=== PATIENT | male | born 1970 | race Caucasian/White ===

== ENCOUNTER 2017-11-02 06:35 | Day surgery (SDC) | payer BC, OTHER ==
[2017-10-30 12:28] VITALS: BMI 25.2
[~2017-11-02 06:35] MED LIST: LACTATED RINGERS 1,000 ML IV SCH
[2017-11-02 06:58] VITALS: TEMP 97.8
[2017-11-02 07:17] LABS: Glucose,Whole Blood 139 mg/dL (75-99)
[2017-11-02] MEDS ORDERED: PROPOFOL 10 MG/ML 20 ML VIAL IV ONE (08:00)
[2017-11-02 08:29] VITALS: RESP 16
--- NOTE | 2017-11-02 08:34 | P.PCN ---
Date of Procedure: 11/02/17 Procedure(s) Performed: Procedure: Total colonoscopy. Preoperative diagnosis: Screening for neoplasia, patient has history of colon cancer. Postoperative diagnosis: 1. Prior resection in the right colon with no evidence of local recurrence. 2. Sigmoid diverticulosis with no evidence of acute diverticulitis or strictures. 3. No polyps or other pathology noted. Preparation: HalfLytely prep. Sedation: Was provided by anesthesia. Brief clinical history: The patient is a 47-year-old male who was diagnosed with colon cancer in 2011 for which he underwent right colon resection and received chemotherapy. The patient had liver resection related to cancer as well. He has done well since that time and he returns for this screening evaluation because of his history. He has no abdominal complaints, bleeding or anemia. Procedure: With the patient on his left lateral decubitus position and after informed consent and adequate sedation, the perianal area was inspected and it did not show any fissures or fistulas. There were no masses felt on digital rectal examination. The Olympus CFQ 160L video colonoscope was then inserted in the rectum in the usual fashion and advanced to the right colon. The patient had evidence of prior resection and the right colon but there was no local recurrence or any polyps or other pathology noted. In the sigmoid, there were several diverticular orifices seen scattered but there was no evidence of acute diverticulitis or strictures. I retroflexed the endoscope in the rectum before the endoscope was withdrawn. Low-grade internal hemorrhoids were noted but there was no evidence of bleeding. The patient tolerated the procedure well. Plan: The patient was reassured. He will follow up with you as planned and I recommended repeat exam in 5 years.
[2017-11-02 08:58] VITALS: BP 124/86; PULSE 74
== END 2017-11-02 09:18 | disposition home or self-care (01) ==
LOC: ORWHC2ENDO 06:35
DX: Z12.11 Encounter for screening for malignant neoplasm of colon (principal); K57.30 Diverticulosis of large intestine without perforation or abscess without bleeding; K64.8 Other hemorrhoids; E11.9 Type 2 diabetes mellitus without complications; Z88.5 Allergy status to narcotic agent; Z79.84 Long term (current) use of oral hypoglycemic drugs; Z85.038 Personal history of other malignant neoplasm of large intestine; Z90.49 Acquired absence of other specified parts of digestive tract; Z92.21 Personal history of antineoplastic chemotherapy
CPT/HCPCS: 45378; J2704

== ENCOUNTER → 2017-11-02 | Outpatient (CLI) | payer BC ==
--- NOTE | 2017-11-03 08:08 | CT ---
EXAMINATION TYPE: CT abdomen pelvis w con DATE OF EXAM: 11/02/2017 COMPARISON: November 01, 2013 HISTORY: History of colon cancer. follow up scan per patient CT DLP: 1186.9 mGycm CONTRAST: CT scan of the abdomen and pelvis is performed with Oral Contrast and with IV Contrast, patient injec benjamin with 100 mL of Isovue 300. FINDINGS: LUNG BASES-: No visible nodule. No infiltrate. LIVER/GB: No calcified gallstones. Lesion at the dome of the liver measures 1.4 cm versus 2.2 cm pr eviously and demonstrates less peripheral enhancement than on the prior study. Additional hypoattenua ting lesion anterior segment right hepatic lobe at its periphery demonstrates adjacent surgical clips and measures 2.3 cm in greatest dimension versus pneumonia hepatic lesions are identified. Scattered hepatic calcifications are noted. PANCREAS: No inflammation. No distinct mass. SPLEEN: No splenic enlargement. No lesion seen. Splenic granulomas are identified. ADRENALS: No nodule. No thickening. KIDNEYS/BLADDER: No hydronephrosis. No nephrolithiasis. No distinct renal mass. Urinary bladder g rossly unremarkable. BOWEL: Changes of right hemicolectomy. No mass lesions identified at this time. Normal bowel caliber . No inflammation. GENITAL ORGANS: No gross abnormality. LYMPH NODES: No greater than 1cm abdominal or pelvic lymph nodes are appreciated. AORTA: No significant abnormality. OSSEOUS STRUCTURES: No significant abnormality is seen. OTHER: No significant additional abnormality is seen. IMPRESSION: 1. Number of hepatic lesions is stable. Morphology and size differences as noted above. 2. Changes right-sided hemicolectomy without evidence for recurrent disease.
== END | disposition home or self-care (01) ==
LOC: RADCTMAIN 14:14
PROVIDERS: ATTEND Family Medicine
DX: Z08 Encounter for follow-up examination after completed treatment for malignant neoplasm (principal); K76.89 Other specified diseases of liver; Z90.49 Acquired absence of other specified parts of digestive tract; Z85.038 Personal history of other malignant neoplasm of large intestine; Z98.890 Other specified postprocedural states
CPT/HCPCS: 74177; Q9967

== ENCOUNTER 2019-10-21 12:56 | Observation (INO) | payer BC ==
[2019-10-21] MEDS ORDERED: ONDANSETRON 4 MG/2 ML VIAL IVP STA (13:27)
[2019-10-21] MEDS ORDERED: HYDROmorphone 0.5 MG/0.5 ML SYRINGE IVP STA (13:27)
[2019-10-21] MEDS ORDERED: SODIUM CHLORIDE 0.9% 500 ML 500 ML IV ONE (13:28)
[2019-10-21 13:59] LABS: Basophils # (A) 0.1 k/uL (0-0.2); Basophils % (A) 0 %; Eosinophils # (A) 0.1 k/uL (0-0.7); Eosinophils % (A) 0 %; HCT 44.3 % (39.0-53.0); HGB 14.3 gm/dL (13.0-17.5); Lymphocytes % (A) 7 %; MCH 28.6 pg (25.0-35.0); MCHC 32.4 g/dL (31.0-37.0); MCV 88.2 fL (80.0-100.0); Mean Platelet Volume 7.3; Monocytes # (A) 0.4 k/uL (0-1.0); Monocytes % (A) 3 %; Neutrophils # (A) 14.1 k/uL (1.3-7.7); Neutrophils % (A) 90 %; Platelet Count 269 k/uL (150-450); RBC 5.02 m/uL (4.30-5.90); RDW 12.8 % (11.5-15.5); WBC 15.7 k/uL (3.8-10.6)
[2019-10-21 14:07] LABS: ALT 25 U/L (4-49); AST 20 U/L (17-59); African American GFR (CKD) >90 (>60 ml/min/1.73 sqM); Alkaline Phosphatase 69 U/L (38-126); Amylase 53 U/L (30-110); Anion Gap 10 mmol/L; Blood Urea Nitrogen 15 mg/dL (9-20); Calcium 9.8 mg/dL (8.4-10.2); Carbon Dioxide 25 mmol/L (22-30); Chloride 101 mmol/L (98-107); Glucose 183 mg/dL (74-99); Lipase 92 U/L (23-300); Non-African American GFR(CKD) >90 (>60 ml/min/1.73 sqM); Potassium 4.7 mmol/L (3.5-5.1); Sodium 136 mmol/L (137-145); Total Bilirubin 1.2 mg/dL (0.2-1.3); Total Protein 7.7 g/dL (6.3-8.2)
[2019-10-21] MEDS ORDERED: SODIUM CHLORIDE 0.9% 1,000 ML IV ONE (14:18)
[2019-10-21 14:23] LABS: Appearance,Urine Clear (Clear); Bilirubin,Urine Negative (Negative); Blood,Urine Small (Negative); Color,Urine Yellow; Glucose,Urine (UA) 2+ (Negative); Ketones,Urine Negative (Negative); Nitrite,Urine Negative (Negative); Protein,Urine 1+ (Negative); Urobilinogen,Urine <2.0 mg/dL (<2.0)
[2019-10-21 14:24] LABS: Leukocyte Esterase,Urine Negative (Negative)
[2019-10-21 14:34] LABS: Mucus,Urine Moderate /hpf; RBC,Urine 6 /hpf (0-5); Squamous Epithelial Cell,Urine 1 /hpf (0-4); WBC,Urine 1 /hpf (0-5)
[2019-10-21] MEDS: SODIUM CHLORIDE 0.9% 1,000 ML IV SCH ×3 (14:52→23:39)
--- NOTE | 2019-10-21 15:00 | US ---
EXAMINATION TYPE: US abdomen limited DATE OF EXAM: 10/21/2019 COMPARISON: None CLINICAL HISTORY: 49-year-old male RUQ pain. Patient states having hx of liver mets with surgical rem oval. Pain. Technique: Multiple sonographic images of the right upper quadrant are obtained. FINDINGS: EXAM MEASUREMENTS: Liver Length: 18.0 cm Gallbladder Wall: 0.1 cm CBD: 0.9 cm Right Kidney: 12.7 x 6.4 x 5.4 cm Pancreas: Tail obscured by overlying bowel gas. The main pancreatic duct is prominent but within nor mal limits at 2.4 mm. Liver: Echogenic. There is a lobulated hypoechoic lesion centrally in the right liver lobe measuring 3.1 x 2.7 x 2.5 cm. Additional vascular, echogenic, and shadowing lesion with suggestion of some int ernal calcifications anterior right liver lobe measuring 1.6 x 2.0 x 1.8 cm Gallbladder: Borderline hydropic. No wall thickening or surrounding fluid. Possible 9 mm echogenic f ocus at the gallbladder neck region. Evidence for sonographic Davies's sign: neg CBD: dilated Right Kidney: No hydronephrosis. IMPRESSION: 1. Suspect underlying hepatic steatosis. There are 2 suspicious lesions, one within the central right liver (3.1 cm) and one within the anterior right liver (2.0 cm). Given patient's history, hepatic me tastases not excluded. Consider MRI to further evaluate. 2. Bile duct is dilated at 9 mm. Correlate with alkaline phosphatase levels for possible early biliar y obstruction. 3. Borderline hydropic gallbladder may relate to fasting state. Sonographic Davies sign is reported a bsent. Given a possible 9 mm calculus in the gallbladder neck region, HIDA scan can be considered if there is development of right upper quadrant pain or concern for early acute cholecystitis.
[2019-10-21] MEDS ORDERED: NALOXONE 0.4 MG/ML 1 ML VIAL IV PRN (15:19)
--- NOTE | 2019-10-21 15:21 | ED ---
Abdominal Pain HPI - General Chief Complaint: Abdominal Pain Stated Complaint: Abd Pain Time Seen by Provider: 10/21/19 13:19 Source: patient Mode of arrival: ambulatory Limitations: no limitations - History of Present Illness Initial Comments: 49-year-old male who denies significant past medical history presenting today for chief complaint of upper quadrant pain that radiates towards his shoulder blades. Patient states that since this morning he has had right upper quadrant pain that radiated towards his shoulder he endorses nausea denies vomiting denies diarrhea or loose stools. Patient denies any chest pain pressure or shortness of breath denies a paresthesias of the upper extremities or jaw pain. Patient denies a presyncope. He denies any known fevers. Patient denies chills. Remaining review of systems negative and the pain persisted he was concerned presents to the ER for further evaluation. Upon arrival patient appears uncomfortable. Patient states he did have an outpatient EKG - Related Data Home Medications Medication Instructions Recorded Confirmed Aspirin [Adult Low Dose Aspirin EC] 162 mg PO ONCE 10/21/19 10/21/19 lisinopriL [Zestril] 5 mg PO DAILY 10/21/19 10/21/19 metFORMIN HCL [metFORMIN HCL ER] 500 mg PO BID 10/21/19 10/21/19 Allergies Allergy/AdvReac Type Severity Reaction Status Date / Time acetaminophen [From Vicodin] Allergy Rash/Hives Verified 10/21/19 15:24 hydrocodone [From Vicodin] Allergy Rash/Hives Verified 10/21/19 15:24 Review of Systems ROS Statement: Those systems with pertinent positive or pertinent negative responses have been documented in the HPI. ROS Other: All systems not noted in ROS Statement are negative. Past Medical History Past Medical History: Cancer Additional Past Medical History / Comment(s): colon cancer History of Any Multi-Drug Resistant Organisms: None Reported Additional Past Surgical History / Comment(s): cancer removal Past Psychological History: No Psychological Hx Reported Smoking Status: Current some day smoker Past Alcohol Use History: None Reported Past Drug Use History: None Reported General Exam - General Exam Comments Initial Comments: General: The patient is awake and alert, in no distress Eye: Pupils are equal, round and reactive to light, extra-ocular movements are intact. No nystagmus. There is normal conjunctiva bilaterally. No signs of icterus. Ears, nose, mouth and throat: There are moist mucous membranes and no oral lesions. Neck: The neck is supple, there is no tenderness or JVD. Cardiovascular: There is a regular rate and rhythm. No murmur, rub or gallop is appreciated. Respiratory: Lungs are clear to auscultation, respirations are non-labored, breath sounds are equal. No wheezes, stridor, rales, or rhonchi. Gastrointestinal: Soft, non-distended, RUQ tendenress to palpation, + murphys sign, abdomen without masses or organomegaly noted. There is no rebound or guarding present. Musculoskeletal: Normal ROM, no tenderness. Strength 5/5. Sensation intact. Pulses equal bilaterally 2+. Neurological: A&O x 3. CN II-XII intact grossly, There are no obvious motor or sensory deficits. Coordination appears grossly intact. Speech is normal. Skin: Skin is warm and dry and no rashes or lesions are noted. No LE swelling. Psychiatric: Cooperative, appropriate mood & affect, normal judgment. Limitations: no limitations Course Vital Signs 10/21/19 13:05 Temperature 97.6 F Pulse Rate 83 Respiratory 18 Rate Blood Pressure 134/80 O2 Sat by Pulse 98 Oximetry Procedures - [employer] Protocol (Time Out) Nurse: Zuly Singletary Medical Decision Making - Medical Decision Making General male presented for upper quadrant plain positive Davies sign. Leukocytosis. Patient has no enzyme elevation however there is a 9 mm gallbladder neck stone. I'm concern for developing acute cholecystitis. Patient was placed on Zosyn. IV fluids. Dilaudid for pain management which he tolerated well. States it did help control the pain. She case discussed at length my attending provider Dr. Ghosh who is agreeable to care plan admission. Dr. Winters accepted the admission, he states no GI consult needed at this time, wants medicine consulted and NPO after midnight. Patient agreeable to care plan. He does not appear septic and blood cultures are pending. - Lab Data Result diagrams: 10/21/19 13:50 10/21/19 13:50 Lab Results 10/21/19 10/21/19 10/21/19 Range/Units 13:50 13:50 13:50 WBC 15.7 H (3.8-10.6) k/uL RBC 5.02 (4.30-5.90) m/uL Hgb 14.3 (13.0-17.5) gm/dL Hct 44.3 (39.0-53.0) % MCV 88.2 (80.0-100.0) fL MCH 28.6 (25.0-35.0) pg MCHC 32.4 (31.0-37.0) g/dL RDW 12.8 (11.5-15.5) % Plt Count 269 (150-450) k/uL Neutrophils % 90 % Lymphocytes % 7 % Monocytes % 3 % Eosinophils % 0 % Basophils % 0 % Neutrophils # 14.1 H (1.3-7.7) k/uL Lymphocytes # 1.0 (1.0-4.8) k/uL Monocytes # 0.4 (0-1.0) k/uL Eosinophils # 0.1 (0-0.7) k/uL Basophils # 0.1 (0-0.2) k/uL Sodium 136 L (137-145) mmol/L Potassium 4.7 (3.5-5.1) mmol/L Chloride 101 (98-107) mmol/L Carbon Dioxide 25 (22-30) mmol/L Anion Gap 10 mmol/L BUN 15 (9-20) mg/dL Creatinine 0.65 L (0.66-1.25) mg/dL Est GFR (CKD-EPI)AfAm >90 (>60 ml/min/1.73 sqM) Est GFR (CKD-EPI)NonAf >90 (>60 ml/min/1.73 sqM) Glucose 183 H (74-99) mg/dL Lactic Ac Sepsis Rflx Plasma Lactic Acid Rancho 2.5 H* (0.7-2.0) mmol/L Calcium 9.8 (8.4-10.2) mg/dL Total Bilirubin 1.2 (0.2-1.3) mg/dL AST 20 (17-59) U/L ALT 25 (4-49) U/L Alkaline Phosphatase 69 (38-126) U/L Troponin I (0.000-0.034) ng/mL Total Protein 7.7 (6.3-8.2) g/dL Albumin 5.0 (3.5-5.0) g/dL Amylase 53 (30-110) U/L Lipase 92 (23-300) U/L Urine Color Urine Appearance (Clear) Urine pH (5.0-8.0) Ur Specific [place] (1.001-1.035) Urine Protein (Negative) Urine Glucose (UA) (Negative) Urine Ketones (Negative) Urine Blood (Negative) Urine Nitrite (Negative) Urine Bilirubin (Negative) Urine Urobilinogen (<2.0) mg/dL Ur Leukocyte Esterase (Negative) Urine RBC (0-5) /hpf Urine WBC (0-5) /hpf Ur Squamous Epith Cells (0-4) /hpf Urine Mucus (None) /hpf 10/21/19 10/21/19 10/21/19 Range/Units 13:50 13:55 14:17 WBC (3.8-10.6) k/uL RBC (4.30-5.90) m/uL Hgb (13.0-17.5) gm/dL Hct (39.0-53.0) % MCV (80.0-100.0) fL MCH (25.0-35.0) pg MCHC (31.0-37.0) g/dL RDW (11.5-15.5) % Plt Count (150-450) k/uL Neutrophils % % Lymphocytes % % Monocytes % % Eosinophils % % Basophils % % Neutrophils # (1.3-7.7) k/uL Lymphocytes # (1.0-4.8) k/uL Monocytes # (0-1.0) k/uL Eosinophils # (0-0.7) k/uL Basophils # (0-0.2) k/uL Sodium (137-145) mmol/L Potassium (3.5-5.1) mmol/L Chloride (98-107) mmol/L Carbon Dioxide (22-30) mmol/L Anion Gap mmol/L BUN (9-20) mg/dL Creatinine (0.66-1.25) mg/dL Est GFR (CKD-EPI)AfAm (>60 ml/min/1.73 sqM) Est GFR (CKD-EPI)NonAf (>60 ml/min/1.73 sqM) Glucose (74-99) mg/dL Lactic Ac Sepsis Rflx Y Plasma Lactic Acid [place] (0.7-2.0) mmol/L Calcium (8.4-10.2) mg/dL Total Bilirubin (0.2-1.3) mg/dL AST (17-59) U/L ALT (4-49) U/L Alkaline Phosphatase (38-126) U/L Troponin I <0.012 (0.000-0.034) ng/mL Total Protein (6.3-8.2) g/dL Albumin (3.5-5.0) g/dL Amylase (30-110) U/L Lipase (23-300) U/L Urine Color Yellow Urine Appearance Clear (Clear) Urine pH 6.0 (5.0-8.0) Ur Specific [place] 1.030 (1.001-1.035) Urine Protein 1+ H (Negative) Urine Glucose (UA) 2+ H (Negative) Urine Ketones Negative (Negative) Urine Blood Small (Negative) Urine Nitrite Negative (Negative) Urine Bilirubin Negative (Negative) Urine Urobilinogen <2.0 (<2.0) mg/dL Ur Leukocyte Esterase Negative (Negative) Urine RBC 6 H (0-5) /hpf Urine WBC 1 (0-5) /hpf Ur Squamous Epith Cells 1 (0-4) /hpf Urine Mucus Moderate H (None) /hpf Disposition Clinical Impression: Calculus of GB/BD w/o cystitis, Common bile duct dilatation, RUQ pain, Lactic acidosis, Hepatic steatosis, Liver lesion Disposition: ADMITTED IP TO THIS [facility] Condition: Stable Is patient prescribed a controlled substance at d/c from ED?: No Referrals: Emily Gallo DO [Primary Care Provider] - 1-2 days Time of Disposition: 15:21 Decision to Admit Reason: Admit from EC Decision Date: 10/21/19 Decision Time: 15:21
[2019-10-21] MEDS ORDERED: PIPERACILLIN-TAZOBACTAM 3.375 GM in SODIUM CHLORIDE 0.9% 100 ML IVPB SCH (16:00)
[2019-10-21] MEDS: HYDROmorphone 0.5 MG/0.5 ML SYRINGE IVP PRN ×3 (17:14→23:43)
[2019-10-21 20:26] LABS: Glucose,Whole Blood 160 mg/dL (75-99)
--- NOTE | 2019-10-21 22:01 | P.CONS ---
History of Present Illness - History of Present Illness This is a pleasant 49 years old male with past medical history of colon cancer status post colon resection and short period of chemotherapy. He is a patient of Dr. Kurtz. Presents with right upper quadrant abdominal pain of one-day duration associated with right shoulder pain. His abdominal pain is severe and sharp associated with nausea and only little vomiting. He had regular bowel movement today. Also patient denies fever. Although he feels. No other complaints like no chest pain or dyspnea, no headache or weakness He smokes about half pack per day but he denies alcohol or illicit drugs. Vital signs stable and patient is afebrile. Leukocytosis of 15.7 K, Rest of the CBC, BMP and Liver Enzymes Were Unremarkable. Troponin Is Negative Less Than 0.012, High Lactic Acid Came Back to Normal at 1.9. UA Is No Suspicious of Infection. EKG Showing Normal Sinus Rhythm at 70 Bpm If Her Ultrasound Showing Suspected Underlying 2 Lesions Suspicious for Metastatic Liver Disease One of Them Is 3.1 Cm at the Central Right Liver and the Other One in the Anterior Right Liver 2.0 Cm. Bile duct is dilated 9 mm, borderline hydropic gallbladder medullary to fasting state. Gallbladder neck calculus of 9 mm Review of Systems CONSTITUTIONAL: No fever, no malaise, no fatigue. HEENT: No recent visual problems or hearing problems. Denied any sore throat. CARDIOVASCULAR: No orthopnea, PND, no palpitations, no syncope. PULMONARY: No shortness of breath, no cough, no hemoptysis. GASTROINTESTINAL: No diarrhea, Normoactive bowel sounds. NEUROLOGICAL: No headaches, no weakness, no numbness. HEMATOLOGICAL: Denies any bleeding or petechiae. GENITOURINARY: Denies any burning micturition, frequency, or urgency. MUSCULOSKELETAL/RHEUMATOLOGICAL: Denies any joint pain, swelling, or any muscle pain. ENDOCRINE: Denies any polyuria or polydipsia. Past Medical History Past Medical History: Cancer Additional Past Medical History / Comment(s): colon cancer History of Any Multi-Drug Resistant Organisms: None Reported Additional Past Surgical History / Comment(s): cancer removal Past Anesthesia/Blood Transfusion Reactions: No Reported Reaction Past Psychological History: No Psychological Hx Reported Smoking Status: Current some day smoker Past Alcohol Use History: None Reported Past Drug Use History: None Reported - Past Family History Mother Family Medical History: Coronary Artery Disease (CAD), CVA/TIA, Diabetes Mellitus Medications and Allergies Home Medications Medication Instructions Recorded Confirmed Type Aspirin [Adult Low Dose Aspirin EC] 162 mg PO ONCE 10/21/19 10/21/19 History lisinopriL [Zestril] 5 mg PO DAILY 10/21/19 10/21/19 History metFORMIN HCL [metFORMIN HCL ER] 500 mg PO BID 10/21/19 10/21/19 History Allergies Allergy/AdvReac Type Severity Reaction Status Date / Time acetaminophen [From Vicodin] Allergy Rash/Hives Verified 10/21/19 15:24 hydrocodone [From Vicodin] Allergy Rash/Hives Verified 10/21/19 15:24 Physical Exam Vitals: Vital Signs Temp Pulse Pulse Resp BP BP Pulse Ox 10/21/19 20:30 98.4 F 71 18 147/80 99 10/21/19 17:29 98.4 F 75 16 156/77 100 10/21/19 13:05 97.6 F 83 18 134/80 98 Intake and Output 10/21/19 10/21/19 10/21/19 06:59 14:59 22:59 Other: Voiding Method Toilet Weight 101.605 kg 101.605 kg GENERAL: The patient is alert and oriented x3, not in any acute distress. Well developed, well nourished. HEENT: Pupils are round and equally reacting to light. EOMI. No scleral icterus. No conjunctival pallor. Normocephalic, atraumatic. No pharyngeal erythema. No thyromegaly. CARDIOVASCULAR: S1 and S2 present. No murmurs, rubs, or gallops. PULMONARY: Chest is clear to auscultation, no wheezing or crackles. -ABDOMEN: Soft, right upper quadrant tenderness, nondistended, normoactive bowel sounds. No palpable organomegaly. MUSCULOSKELETAL: No joint swelling or deformity. EXTREMITIES: No cyanosis, clubbing, or pedal edema. NEUROLOGICAL: Gross neurological examination did not reveal any focal deficits. SKIN: No rashes. No petechiae Results CBC & Chem 7: 10/21/19 13:50 10/21/19 13:50 Labs: Abnormal Lab Results - Last 24 Hours (Table) 10/21/19 10/21/19 10/21/19 Range/Units 13:50 13:50 13:50 WBC 15.7 H (3.8-10.6) k/uL Neutrophils # 14.1 H (1.3-7.7) k/uL Sodium 136 L (137-145) mmol/L Creatinine 0.65 L (0.66-1.25) mg/dL Glucose 183 H (74-99) mg/dL POC Glucose (mg/dL) (75-99) mg/dL Plasma Lactic Acid [place] 2.5 H* (0.7-2.0) mmol/L Urine Protein (Negative) Urine Glucose (UA) (Negative) Urine RBC (0-5) /hpf Urine Mucus (None) /hpf 10/21/19 10/21/19 Range/Units 13:55 20:24 WBC (3.8-10.6) k/uL Neutrophils # (1.3-7.7) k/uL Sodium (137-145) mmol/L Creatinine (0.66-1.25) mg/dL Glucose (74-99) mg/dL POC Glucose (mg/dL) 160 H (75-99) mg/dL Plasma Lactic Acid [place] (0.7-2.0) mmol/L Urine Protein 1+ H (Negative) Urine Glucose (UA) 2+ H (Negative) Urine RBC 6 H (0-5) /hpf Urine Mucus Moderate H (None) /hpf Assessment and Plan Assessment: 2 right liver lesion 3.1 and 2.0 cm suspicious for hepatic metastasis Dilated common bile duct of 9 mm Hydropic gallbladder with gallstones and the gallbladder neck, suspicious for acute cholecystitis History of colon cancer status post bowel resection and short period of chemotherapy Plan: This is a pleasant 49 years old male who presents with possible cholecystitis with gallstone in the gallbladder neck as well as 2 lesions suspicious for hepatic metastasis. Surgery team will evaluate the patient in the meantime continue with pain management, normal saline and IV Zosyn. Hold aspirin for pos sible procedure Labs and medication were reviewed.. Continue same treatment. Continue with symptomatic treatment. Resume home medication. Monitor lytes and vitals. DVT and GI prophylaxis. Further recommendations of the clinical course of the patient DVT prophylaxis: Subcutaneous heparin GI Prophylaxis: Pepcid Prognosis is guardeds thank you for consulting us
[2019-10-22] MEDS: HYDROmorphone 0.5 MG/0.5 ML SYRINGE IVP PRN ×2 (03:08→07:37)
[2019-10-22] MEDS: PIPERACILLIN-TAZOBACTAM 3.375 GM in SODIUM CHLORIDE 0.9% 100 ML IVPB SCH ×3 (03:08→20:32)
[2019-10-22] MEDS: SODIUM CHLORIDE 0.9% 1,000 ML IV SCH ×3 (03:13→22:33)
[2019-10-22 05:49] LABS: Basophils # (A) 0.1 k/uL (0-0.2); Basophils % (A) 0 %; Eosinophils # (A) 0.2 k/uL (0-0.7); Eosinophils % (A) 2 %; HGB 14.1 gm/dL (13.0-17.5); Lymphocytes # (A) 3.2 k/uL (1.0-4.8); Lymphocytes % (A) 24 %; MCH 28.7 pg (25.0-35.0); MCHC 32.1 g/dL (31.0-37.0); MCV 89.5 fL (80.0-100.0); Mean Platelet Volume 7.3; Monocytes # (A) 0.7 k/uL (0-1.0); Monocytes % (A) 5 %; Neutrophils # (A) 9.1 k/uL (1.3-7.7); Neutrophils % (A) 68 %; Platelet Count 240 k/uL (150-450); RBC 4.91 m/uL (4.30-5.90); RDW 12.9 % (11.5-15.5); WBC 13.5 k/uL (3.8-10.6)
[2019-10-22 06:00] LABS: ALT 21 U/L (4-49); AST 18 U/L (17-59); African American GFR (CKD) >90 (>60 ml/min/1.73 sqM); Albumin 4.1 g/dL (3.5-5.0); Alkaline Phosphatase 63 U/L (38-126); Anion Gap 7 mmol/L; Blood Urea Nitrogen 11 mg/dL (9-20); Calcium 8.9 mg/dL (8.4-10.2); Carbon Dioxide 26 mmol/L (22-30); Chloride 103 mmol/L (98-107); Glucose 115 mg/dL (74-99); Non-African American GFR(CKD) >90 (>60 ml/min/1.73 sqM); Potassium 3.9 mmol/L (3.5-5.1); Sodium 136 mmol/L (137-145); Total Bilirubin 2.1 mg/dL (0.2-1.3); Total Protein 6.7 g/dL (6.3-8.2)
[2019-10-22 06:34] LABS: Glucose,Whole Blood 141 mg/dL (75-99)
[2019-10-22] MEDS: FAMOTIDINE 20 MG/2 ML VIAL IV SCH ×2 (07:37→20:31)
[2019-10-22] MEDS: lisinopriL 5 MG TAB PO SCH (07:37)
[2019-10-22] MEDS: HEPARIN SODIUM,PORCINE 5,000 UNIT/ML 1 ML VIAL SQ SCH ×2 (07:43→20:30)
[2019-10-22] MEDS ORDERED: METFORMIN HCL 500 MG PO SCH (09:00)
[2019-10-22 11:40] LABS: Glucose,Whole Blood 138 mg/dL (75-99)
--- NOTE | 2019-10-22 12:10 | P.GSHP ---
History of Present Illness H&P Date: 10/22/19 CHIEF COMPLAINT: Right upper quadrant abdominal pain HISTORY OF PRESENT ILLNESS: This is a 49-year-old male with history of colon cancer status post resection and short period of chemotherapy. And he has a history of nicotine dependence patient presented to the emergency room with complaints of right upper quadrant abdominal pain that radiated up into the right shoulder. He reports that the pain was sharp and associated with nausea and some vomiting. He is having regular bowel movements. He denies any fever or chills. Abdominal ultrasound showed dilation of the common bile duct and borderline hydropic gallbladder. And possible calculus in the gallbladder. Patient has evidence of acute cholecystitis and has been scheduled for laparoscopic cholecystectomy. PAST MEDICAL HISTORY: See list. PAST SURGICAL HISTORY: See list. MEDICATIONS: See list. ALLERGIES: See list. SOCIAL HISTORY: No illicit drug use. REVIEW OF SYSTEMS: CONSTITUTIONAL: Denies fever or chills. HEENT: Denies blurred vision, vision changes, or eye pain. Denies hemoptysis CARDIOVASCULAR: Denies chest pain or pressure. RESPIRATORY: No shortness of breath. GASTROINTESTINAL: See HPI for pertinent findings HEMATOLOGIC: Denies bleeding disorders. GENITOURINARY: Denies any blood in urine or increased urinary frequency. SKIN: Denies pruitis. Denies rash. PHYSICAL EXAM: VITAL SIGNS: Reviewed GENERAL: Well-developed in no acute distress. HEENT: No sclera icterus. Extraocular movements grossly intact. Moist buccal mucosa. Head is atraumatic, normocephalic. No nasal drainage. ABDOMEN: Soft. Right upper quadrant tenderness with palpation. Nondistended. NEUROLOGIC: Alert and oriented. Cranial nerves II through XII grossly intact. LABORATORY DATA: WBC 13.5 total bilirubin 2.1 lactic 2.5 LFTs normal lipase normal IMAGING: Abdominal ultrasound suspect underlying hepatic steatosis. 2 suspicious lesions on within the central right liver one within the anterior right liver. Given patient's history hepatic metastasis not excluded. Bile duct is dilated at 9 mm. Borderline hydropic gallbladder may be related to fasting state. Possible 9 mm calculus in the gallbladder neck region ASSESSMENT: 1. Acute cholecystitis: Right upper quadrant abdominal pain and abdominal ultrasound with dilated common bile and a 9 mm Calculus in the gallbladder neck region 2. History of colon cancer with liver lesions noted on abdominal ultrasound PLAN: -Patient is scheduled for laparoscopic cholecystectomy today with Dr. Winters -Continue IV antibiotics -continue IV fluids -Continue IV Dilaudid and continue -GI prophylaxis Pepcid and DVT prophylaxis subcu heparin -Medicine consulted for medical management -Oncology consulted for colon cancer with possible liver metastases Physician Correction Officer Supervisor note has been reviewed by physician. Signing provider agrees with the documented findings, assessment, and plan of care. Past Medical History Past Medical History: Cancer Additional Past Medical History / Comment(s): colon cancer History of Any Multi-Drug Resistant Organisms: None Reported Additional Past Surgical History / Comment(s): cancer removal Past Anesthesia/Blood Transfusion Reactions: No Reported Reaction Past Psychological History: No Psychological Hx Reported Smoking Status: Current some day smoker Past Alcohol Use History: None Reported Past Drug Use History: None Reported - Past Family History Mother Family Medical History: Coronary Artery Disease (CAD), CVA/TIA, Diabetes Mellitus Medications and Allergies Home Medications Medication Instructions Recorded Confirmed Type Aspirin [Adult Low Dose Aspirin EC] 162 mg PO ONCE 10/21/19 10/21/19 History lisinopriL [Zestril] 5 mg PO DAILY 10/21/19 10/21/19 History metFORMIN HCL [metFORMIN HCL ER] 500 mg PO BID 10/21/19 10/21/19 History Allergies Allergy/AdvReac Type Severity Reaction Status Date / Time acetaminophen [From Vicodin] Allergy Rash/Hives Verified 10/21/19 15:24 hydrocodone [From Vicodin] Allergy Rash/Hives Verified 10/21/19 15:24 Surgical - Exam Vital Signs Temp Pulse Resp BP Pulse Ox 97.6 F 83 18 134/80 98 10/21/19 13:05 10/21/19 13:05 10/21/19 13:05 10/21/19 13:05 10/21/19 13:05 Results - Labs 10/22/19 05:24 10/22/19 05:24 Abnormal Lab Results - Last 24 Hours (Table) 10/21/19 10/21/19 10/21/19 Range/Units 13:50 13:50 13:50 WBC 15.7 H (3.8-10.6) k/uL Neutrophils # 14.1 H (1.3-7.7) k/uL Sodium 136 L (137-145) mmol/L Creatinine 0.65 L (0.66-1.25) mg/dL Glucose 183 H (74-99) mg/dL POC Glucose (mg/dL) (75-99) mg/dL Plasma Lactic Acid Rancho 2.5 H* (0.7-2.0) mmol/L Total Bilirubin (0.2-1.3) mg/dL Urine Protein (Negative) Urine Glucose (UA) (Negative) Urine RBC (0-5) /hpf Urine Mucus (None) /hpf 10/21/19 10/21/19 10/22/19 Range/Units 13:55 20:24 05:24 WBC 13.5 H (3.8-10.6) k/uL Neutrophils # 9.1 H (1.3-7.7) k/uL Sodium (137-145) mmol/L Creatinine (0.66-1.25) mg/dL Glucose (74-99) mg/dL POC Glucose (mg/dL) 160 H (75-99) mg/dL Plasma Lactic Acid Rancho (0.7-2.0) mmol/L Total Bilirubin (0.2-1.3) mg/dL Urine Protein 1+ H (Negative) Urine Glucose (UA) 2+ H (Negative) Urine RBC 6 H (0-5) /hpf Urine Mucus Moderate H (None) /hpf 10/22/19 10/22/19 10/22/19 Range/Units 05:24 06:33 11:38 WBC (3.8-10.6) k/uL Neutrophils # (1.3-7.7) k/uL Sodium 136 L (137-145) mmol/L Creatinine 0.63 L (0.66-1.25) mg/dL Glucose 115 H (74-99) mg/dL POC Glucose (mg/dL) 141 H 138 H (75-99) mg/dL Plasma Lactic Acid Rancho (0.7-2.0) mmol/L Total Bilirubin 2.1 H (0.2-1.3) mg/dL Urine Protein (Negative) Urine Glucose (UA) (Negative) Urine RBC (0-5) /hpf Urine Mucus (None) /hpf Diabetes panel 10/21/19 10/22/19 Range/Units 13:50 05:24 Sodium 136 L 136 L (137-145) mmol/L Potassium 4.7 3.9 (3.5-5.1) mmol/L Chloride 101 103 (98-107) mmol/L Carbon Dioxide 25 26 (22-30) mmol/L BUN 15 11 (9-20) mg/dL Creatinine 0.65 L 0.63 L (0.66-1.25) mg/dL Glucose 183 H 115 H (74-99) mg/dL Calcium 9.8 8.9 (8.4-10.2) mg/dL AST 20 18 (17-59) U/L ALT 25 21 (4-49) U/L Alkaline Phosphatase 69 63 (38-126) U/L Total Protein 7.7 6.7 (6.3-8.2) g/dL Albumin 5.0 4.1 (3.5-5.0) g/dL Calcium panel 10/21/19 10/22/19 Range/Units 13:50 05:24 Calcium 9.8 8.9 (8.4-10.2) mg/dL Albumin 5.0 4.1 (3.5-5.0) g/dL Pituitary panel 10/21/19 10/22/19 Range/Units 13:50 05:24 Sodium 136 L 136 L (137-145) mmol/L Potassium 4.7 3.9 (3.5-5.1) mmol/L Chloride 101 103 (98-107) mmol/L Carbon Dioxide 25 26 (22-30) mmol/L BUN 15 11 (9-20) mg/dL Creatinine 0.65 L 0.63 L (0.66-1.25) mg/dL Glucose 183 H 115 H (74-99) mg/dL Calcium 9.8 8.9 (8.4-10.2) mg/dL Adrenal panel 10/21/19 10/22/19 Range/Units 13:50 05:24 Sodium 136 L 136 L (137-145) mmol/L Potassium 4.7 3.9 (3.5-5.1) mmol/L Chloride 101 103 (98-107) mmol/L Carbon Dioxide 25 26 (22-30) mmol/L BUN 15 11 (9-20) mg/dL Creatinine 0.65 L 0.63 L (0.66-1.25) mg/dL Glucose 183 H 115 H (74-99) mg/dL Calcium 9.8 8.9 (8.4-10.2) mg/dL Total Bilirubin 1.2 2.1 H (0.2-1.3) mg/dL AST 20 18 (17-59) U/L ALT 25 21 (4-49) U/L Alkaline Phosphatase 69 63 (38-126) U/L Total Protein 7.7 6.7 (6.3-8.2) g/dL Albumin 5.0 4.1 (3.5-5.0) g/dL
--- NOTE | 2019-10-22 12:17 | P.PN ---
Subjective This is a pleasant 49 years old male with past medical history of colon cancer status post colon resection and short period of chemotherapy. He is a patient of Dr. Kurtz. Presents with right upper quadrant abdominal pain of one-day duration associated with right shoulder pain. His abdominal pain is severe and sharp associated with nausea and only little vomiting. He had regular bowel movement today. Also patient denies fever. Although he feels. No other complaints like no chest pain or dyspnea, no headache or weakness He smokes about half pack per day but he denies alcohol or illicit drugs. Vital signs stable and patient is afebrile. Leukocytosis of 15.7 K, Rest of the CBC, BMP and Liver Enzymes Were Unremarkable. Troponin Is Negative Less Than 0.012, High Lactic Acid Came Back to Normal at 1.9. UA Is No Suspicious of Infection. EKG Showing Normal Sinus Rhythm at 70 Bpm If Her Ultrasound Showing Suspected Underlying 2 Lesions Suspicious for Metastatic Liver Disease One of Them Is 3.1 Cm at the Central Right Liver and the Other One in the Anterior Right Liver 2.0 Cm. Bile duct is dilated 9 mm, borderline hydropic gallbladder medullary to fasting state. Gallbladder neck calculus of 9 mm 10/22/2019 Patient sitting in bed, not in distress, his right upper quadrant abdominal pain is controlled but only because he got Dilaudid and irrigated about 4/10 in severity, pain is getting worse with movement today. No vomiting and no problem with his bowel movements. WBC is trending down and patient remains on Zosyn and normal saline at 1 30 mL/h when going tomorrow with 100 mL per hour. Patient is going for laparoscopic cholecystectomy today Oncology team were consulted for possible liver metastases Review of Systems CONSTITUTIONAL: No fever, no malaise, no fatigue. HEENT: No recent visual problems or hearing problems. Denied any sore throat. CARDIOVASCULAR: No orthopnea, PND, no palpitations, no syncope. PULMONARY: No shortness of breath, no cough, no hemoptysis. GASTROINTESTINAL: No diarrhea, Normoactive bowel sounds. NEUROLOGICAL: No headaches, no weakness, no numbness. HEMATOLOGICAL: Denies any bleeding or petechiae. GENITOURINARY: Denies any burning micturition, frequency, or urgency. MUSCULOSKELETAL/RHEUMATOLOGICAL: Denies any joint pain, swelling, or any muscle pain. ENDOCRINE: Denies any polyuria or polydipsia. Active Medications Generic Name Dose Route Start Last Admin Trade Name Freq PRN Reason Stop Dose Admin Famotidine 20 mg 10/22/19 09:00 10/22/19 07:37 Pepcid IV 20 mg Q12HR [facility]ELA Administration Heparin Sodium (Porcine) 5,000 unit 10/22/19 09:00 10/22/19 07:43 Heparin SQ 5,000 unit Q12HR ARIELA Administration Hydromorphone HCl 0.5 mg 10/21/19 16:04 10/22/19 07:37 Dilaudid IVP 0.5 mg Q3H PRN Administration Severe Pain Sodium Chloride 1,000 mls @ 130 mls/hr 10/21/19 14:30 10/22/19 03:13 Saline 0.9% IV Not Given .Q7H42M ARIELA Piperacillin Sod/Tazobactam 100 mls @ 25 mls/hr 10/22/19 04:00 10/22/19 11:28 Sod 3.375 gm/ Sodium Chloride IVPB 25 mls/hr Q8H [facility]ELA Administration Lisinopril 5 mg 10/22/19 09:00 10/22/19 07:37 Zestril PO 5 mg DAILY ARIELA Administration Naloxone HCl 0.2 mg 10/21/19 15:19 Narcan IV Q2M PRN Opioid Reversal Objective - Vital Signs Vital signs: Vital Signs Temp 98.6 F 10/22/19 08:37 Pulse 76 10/22/19 08:37 Resp 12 10/22/19 08:37 BP 119/70 10/22/19 08:37 Pulse Ox 97 10/22/19 07:55 Intake & Output 10/21/19 10/22/19 10/22/19 18:59 06:59 18:59 Intake Total 260 Balance 260 Weight 101.605 kg Intake: Intake, IV Titration 260 Amount Sodium Chloride 0.9% 1, 260 000 ml @ 130 mls/hr IV . Q7H42M [facility] Rx#:[id number] Other: Voiding Method Toilet # Voids 2 - Labs CBC & Chem 7: 10/22/19 05:24 10/22/19 05:24 Labs: Abnormal Lab Results - Last 24 Hours (Table) 10/21/19 10/21/19 10/21/19 Range/Units 13:50 13:50 13:50 WBC 15.7 H (3.8-10.6) k/uL Neutrophils # 14.1 H (1.3-7.7) k/uL Sodium 136 L (137-145) mmol/L Creatinine 0.65 L (0.66-1.25) mg/dL Glucose 183 H (74-99) mg/dL POC Glucose (mg/dL) (75-99) mg/dL Plasma Lactic Acid Rancho 2.5 H* (0.7-2.0) mmol/L Total Bilirubin (0.2-1.3) mg/dL Urine Protein (Negative) Urine Glucose (UA) (Negative) Urine RBC (0-5) /hpf Urine Mucus (None) /hpf 10/21/19 10/21/19 10/22/19 Range/Units 13:55 20:24 05:24 WBC 13.5 H (3.8-10.6) k/uL Neutrophils # 9.1 H (1.3-7.7) k/uL Sodium (137-145) mmol/L Creatinine (0.66-1.25) mg/dL Glucose (74-99) mg/dL POC Glucose (mg/dL) 160 H (75-99) mg/dL Plasma Lactic Acid Rancho (0.7-2.0) mmol/L Total Bilirubin (0.2-1.3) mg/dL Urine Protein 1+ H (Negative) Urine Glucose (UA) 2+ H (Negative) Urine RBC 6 H (0-5) /hpf Urine Mucus Moderate H (None) /hpf 10/22/19 10/22/19 10/22/19 Range/Units 05:24 06:33 11:38 WBC (3.8-10.6) k/uL Neutrophils # (1.3-7.7) k/uL Sodium 136 L (137-145) mmol/L Creatinine 0.63 L (0.66-1.25) mg/dL Glucose 115 H (74-99) mg/dL POC Glucose (mg/dL) 141 H 138 H (75-99) mg/dL Plasma Lactic Acid Rancho (0.7-2.0) mmol/L Total Bilirubin 2.1 H (0.2-1.3) mg/dL Urine Protein (Negative) Urine Glucose (UA) (Negative) Urine RBC (0-5) /hpf Urine Mucus (None) /hpf Assessment and Plan Assessment: 2 right liver lesion 3.1 and 2.0 cm suspicious for hepatic metastasis Dilated common bile duct of 9 mm Hydropic gallbladder with gallstones and the gallbladder neck, suspicious for acute cholecystitis History of colon cancer status post bowel resection and short period of chemotherapy Plan: This is a pleasant 49 years old male who presents with possible cholecystitis with gallstone in the gallbladder neck as well as 2 lesions suspicious for hepatic metastasis. Surgery team will evaluate the patient in the meantime continue with pain management, normal saline and IV Zosyn. Hold aspirin for possible procedure, going for laparoscopic cholecystectomy cholecystectomy. Labs and medication were reviewed.. Continue same treatment. Continue with symptomatic treatment. Resume home medication. Monitor lytes and vitals. DVT and GI prophylaxis. Further recommendations of the clinical course of the patient DVT prophylaxis: Subcutaneous heparin GI Prophylaxis: Pepcid Prognosis is guardeds thank you for consulting us
--- NOTE | 2019-10-22 14:59 | P.CONS ---
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 Lim. He underwent a laparoscopic right hemicolectomy with multiple positive nodes. He received adjuvant chemotherapy with FOLFOX, which completed April of 2012. On 11/01/[address] revealed 2 new lesions in the rt lobe of the liver. A PET was ordered and showed uptake in the suspicious lesions seen on CT. He was therefore referred to [facility] for liver resection. He did undergo rection and further chemotherapy per the patient, he continue over the last years his surveillance with [facility], until the past couple years he states he has had no further follow-up. He now presents to [facility] for complaints of RUQ pain and more acutely pain that traveled to right shoulder. An abdominal ultrasound was completed and did reveal 9mm dilated bile duct borderline hydropic gallbladder medullary to fasting state. Gallbladder neck calculus of 9 mm. As well as two lesions in the liver, when comparing to the most recent imaging of abdomen appears to be unchanged. Because of history of prior cancer we have been asked to further evaluate. Review of Systems All systems: negative (hpi) Past Medical History Past Medical History: Cancer Additional Past Medical History / Comment(s): colon cancer History of Any Multi-Drug Resistant Organisms: None Reported Additional Past Surgical History / Comment(s): cancer removal Past Anesthesia/Blood Transfusion Reactions: No Reported Reaction Past Psychological History: No Psychological Hx Reported Smoking Status: Current some day smoker Past Alcohol Use History: None Reported Past Drug Use History: None Reported - Past Family History Mother Family Medical History: Coronary Artery Disease (CAD), CVA/TIA, Diabetes Mellitus Medications and Allergies Home Medications Medication Instructions Recorded Confirmed Type Aspirin [Adult Low Dose Aspirin EC] 162 mg PO ONCE 10/21/19 10/21/19 History lisinopriL [Zestril] 5 mg PO DAILY 10/21/19 10/21/19 History metFORMIN HCL [metFORMIN HCL ER] 500 mg PO BID 10/21/19 10/21/19 History Allergies Allergy/AdvReac Type Severity Reaction Status Date / Time acetaminophen [From Vicodin] Allergy Rash/Hives Verified 10/21/19 15:24 hydrocodone [From Vicodin] Allergy Rash/Hives Verified 10/21/19 15:24 Physical Exam Vitals: Vital Signs Temp Pulse Resp BP Pulse Ox 10/22/19 08:37 98.6 F 76 12 119/70 10/22/19 07:55 98.6 F 76 14 119/70 97 10/22/19 02:58 99.0 F 85 18 137/71 99 10/21/19 20:30 98.4 F 71 18 147/80 99 10/21/19 17:29 98.4 F 75 16 156/77 100 Intake and Output 10/21/19 10/22/19 10/22/19 22:59 06:59 14:59 Intake Total 860 Balance 860 Intake: Intake, IV Titration 860 Amount Piperacillin-Tazobactam 3 100 .375 gm In Sodium Chloride 0.9% 100 ml @ 25 mls/hr IVPB Q8H [facility] Rx#: [id number] Sodium Chloride 0.9% 1, 760 000 ml @ 100 mls/hr IV . Q10H [facility] Rx#:[id number] Other: Voiding Method Toilet Toilet # Voids 2 Weight 101.605 kg - Constitutional General appearance: cooperative, no acute distress - EENT Eyes: EOMI, PERRLA, dentition normal ENT: NA/AT, normal oropharynx - Neck Neck: normal ROM - Respiratory Respiratory: bilateral: CTA - Cardiovascular Rhythm: regular Heart sounds: normal: S1, S2 - Gastrointestinal General gastrointestinal: normal bowel sounds, soft, tenderness - Integumentary Integumentary: normal - Neurologic Neurologic: CNII-XII intact - Musculoskeletal Musculoskeletal: strength equal bilaterally - Psychiatric Psychiatric: A&O x's 3, appropriate affect, intact judgment & insight Results CBC & Chem 7: 10/22/19 05:24 10/22/19 05:24 Labs: Abnormal Lab Results - Last 24 Hours (Table) 10/21/19 10/22/19 10/22/19 Range/Units 20:24 05:24 05:24 WBC 13.5 H (3.8-10.6) k/uL Neutrophils # 9.1 H (1.3-7.7) k/uL Sodium 136 L (137-145) mmol/L Creatinine 0.63 L (0.66-1.25) mg/dL Glucose 115 H (74-99) mg/dL POC Glucose (mg/dL) 160 H (75-99) mg/dL Total Bilirubin 2.1 H (0.2-1.3) mg/dL 10/22/19 10/22/19 Range/Units 06:33 11:38 WBC (3.8-10.6) k/uL Neutrophils # (1.3-7.7) k/uL Sodium (137-145) mmol/L Creatinine (0.66-1.25) mg/dL Glucose (74-99) mg/dL POC Glucose (mg/dL) 141 H 138 H (75-99) mg/dL Total Bilirubin (0.2-1.3) mg/dL CT scan - abdomen: report reviewed CT scan - pelvis: report reviewed Assessment and Plan Plan: Assessment and Recommendations: Cholecystitis: - General Surgery is following and will plan for Laparscopic don - No contraindication from oncology standpoint Hx: Colon Cancer in 2011: - Right hemicolectomy followed by 12 cycles of adjuvant FOLFOX - 2013 recurrence in liver and status post Resection at [facility] with further chemotherapy - Ultrasound reveals two liver lesions which appear to be unchanged from prior imaging, will contact radiology to provide better comparision on imaging. If question will conduct further imaging as outpatient. - He is also greater than 5 years out as well as recent and up to date on colonoscopy. Thank you for this consultation Physcian attest: I have completed the full history and physical and agree with dictation, dictated as a scribe.
[2019-10-22 15:18] LABS: Glucose,Whole Blood 118 mg/dL (75-99)
[2019-10-22] MEDS ORDERED: ONDANSETRON 4 MG/2 ML VIAL ONE (15:19)
[2019-10-22] MEDS ORDERED: IV FLUID CONTINUATION 1,000 ML IV ONE (15:24)
[2019-10-22] MEDS ORDERED: DEXAMETHASONE SOD PHOSPHATE 10 MG/ML 1 ML VIAL IV ONE (15:26)
[2019-10-22] MEDS ORDERED: ONDANSETRON 4 MG/2 ML VIAL IVP ONE (15:26)
[2019-10-22] MEDS ORDERED: GLYCOPYRROLATE 0.2 MG/ML 2 ML VIAL ONE (16:15)
[2019-10-22] MEDS ORDERED: fentaNYL (PF) 50 MCG/ML 2 ML AMP ONE (16:15)
[2019-10-22] MEDS ORDERED: NEOSTIGMINE 1 MG/ML 10 ML VIAL ONE (16:15)
[2019-10-22] MEDS ORDERED: ePHEDrine SULFATE/0.9% NACL/PF 50 MG/5 ML SYRINGE IV ONE (16:15)
[2019-10-22] MEDS ORDERED: ROCURONIUM 10 MG/ML (5 ML VIAL) IV ONE (16:15)
[2019-10-22] MEDS ORDERED: MIDAZOLAM 2 MG/2 ML VIAL ONE (16:15)
[2019-10-22] MEDS ORDERED: PROPOFOL 10 MG/ML 20 ML VIAL IV ONE (16:15)
[2019-10-22] MEDS ORDERED: LIDOCAINE 1% INJ 10MG/ML (20 ML MDV) ONE (16:15)
[2019-10-22] MEDS ORDERED: SUCCINYLCHOLINE CHLORIDE 100 MG/5 ML SYR IV ONE (16:15)
[2019-10-22] MEDS ORDERED: BUPIVACAINE (PF) 0.25% 30 ML VIAL SQ ONE (16:36)
--- NOTE | 2019-10-22 17:11 | P.OP ---
Date of Procedure: 10/22/19 Preoperative Diagnosis: Cholecystitis Postoperative Diagnosis: Cholecystitis Procedure(s) Performed: Laparoscopic cholecystectomy Anesthesia: KIKE Surgeon: Adria Winters Estimated Blood Loss (ml): 5 Pathology: other (Gallbladder) Condition: stable Disposition: PACU Description of Procedure: The patient was placed on the operating table. The patient received a general endotracheal tube anesthesia. The patients abdomen was prepped and draped in the usual sterile fashion. Through an infraumbilical stab incision, the fascia of the anterior abdominal wall was grasped with a pair of Kochers and then the Veress needle was placed in the peritoneal cavity. Position of the Veress needle was confirmed with positive drop test. The abdomen was then insufflated. After adequate insufflation, the 10 mm trocar was placed in the peritoneal cavity. Following this the laparoscope was placed in the peritoneal cavity. The patient was placed in the head-up, right side up position and then a 5 mm trocar was placed in the right lateral and right subcostal position under direct visualization. A 8 mm trocar was placed in the epigastric position. The gallbladder was grasped in the fundus and infundibulum. Traction on the gallbladder was placed in the lateral and the cephalad positions. The triangle of Calot was visualized.. The cystic duct was bluntly dissected until the union of the cystic duct and common bile duct was seen. A critical view of safety was achieved. The cystic duct was then divided and sealed with the Harmonic scissors. A PDS Endoloop was then placed throughout the cystic duct stump. The cystic artery divided and sealed with the Harmonic scissors. The gallbladder was then removed from the liver bed using Harmonic scissors. The gallbladder was then extracted through the epigastric port site. Operative field was checked for any bleeding spots and Harmonic scissors was used to coagulate the liver bed. The abdomen was irrigated. The trocars were removed. The skin was closed using interrupted 3-0 Vicryl suture. Dermabond dressing were applied. The patient tolerated the procedure well.
[2019-10-22] MEDS: HYDROmorphone 1 MG/ML 1 ML SYRINGE IVP ONE ×2 (17:38→17:58)
[2019-10-22 18:22] LABS: Glucose,Whole Blood 190 mg/dL (75-99)
[2019-10-22 19:55] LABS: Glucose,Whole Blood 175 mg/dL (75-99)
[2019-10-22] MEDS: HYDROmorphone 1 MG/ML 1 ML SYRINGE IM PRN ×2 (20:32→22:38)
[2019-10-22 21:02] VITALS: RESP 16
[2019-10-23] MEDS: PIPERACILLIN-TAZOBACTAM 3.375 GM in SODIUM CHLORIDE 0.9% 100 ML IVPB SCH ×2 (04:22→10:47)
[2019-10-23 06:03] LABS: Basophils % (A) 0 %; Eosinophils % (A) 0 %; HCT 38.7 % (39.0-53.0); HGB 12.7 gm/dL (13.0-17.5); Lymphocytes # (A) 1.5 k/uL (1.0-4.8); Lymphocytes % (A) 15 %; MCHC 32.7 g/dL (31.0-37.0); MCV 88.7 fL (80.0-100.0); Mean Platelet Volume 7.3; Monocytes # (A) 0.5 k/uL (0-1.0); Monocytes % (A) 5 %; Neutrophils # (A) 7.7 k/uL (1.3-7.7); Neutrophils % (A) 78 %; Platelet Count 247 k/uL (150-450); RBC 4.37 m/uL (4.30-5.90); RDW 12.8 % (11.5-15.5)
[2019-10-23 06:11] LABS: ALT 30 U/L (4-49); AST 27 U/L (17-59); African American GFR (CKD) >90 (>60 ml/min/1.73 sqM); Albumin 3.8 g/dL (3.5-5.0); Alkaline Phosphatase 68 U/L (38-126); Anion Gap 7 mmol/L; Blood Urea Nitrogen 12 mg/dL (9-20); Calcium 8.7 mg/dL (8.4-10.2); Carbon Dioxide 27 mmol/L (22-30); Chloride 103 mmol/L (98-107); Glucose 169 mg/dL (74-99); Non-African American GFR(CKD) >90 (>60 ml/min/1.73 sqM); Potassium 4.3 mmol/L (3.5-5.1); Sodium 137 mmol/L (137-145); Total Bilirubin 1.8 mg/dL (0.2-1.3); Total Protein 6.2 g/dL (6.3-8.2)
[2019-10-23 06:20] LABS: Glucose,Whole Blood 159 mg/dL (75-99)
[2019-10-23 08:45] VITALS: BP 115/68; PULSE 76; TEMP 98.3
[2019-10-23] MEDS: lisinopriL 5 MG TAB PO SCH (08:45)
[2019-10-23] MEDS: HEPARIN SODIUM,PORCINE 5,000 UNIT/ML 1 ML VIAL SQ SCH (08:45)
[2019-10-23] MEDS: FAMOTIDINE 20 MG/2 ML VIAL IV SCH (08:46)
[2019-10-23] MEDS: SODIUM CHLORIDE 0.9% 1,000 ML IV SCH (10:47)
--- NOTE | 2019-10-23 11:11 | P.DS ---
Providers Date of admission: 10/21/19 15:32 Expected date of discharge: 10/23/19 Attending physician: Adria Winters Consults: 10/21/19 15:19 Consult Physician Routine Consulting Provider: Trey Mathew Consult Reason/Comments: medicine consult per Dr. Winters Do you want consulting provider notified?: Yes 10/21/19 22:24 Consult Physician Routine Consulting Provider: Martín Lim Consult Reason/Comments: h/o colon ca with possible liver mets Do you want consulting provider notified?: Yes Primary care physician: Emily Gallo Hospital Course: Discharge diagnosis 1. Acute cholecystitis status post Laparoscopic cholecystectomy 2. History of colon cancer with liver lesions noted on abdominal ultrasound. Patient will follow-up with oncology in 4 weeks. Hospital course Patient presented with right upper quadrant abdominal pain. Abdominal ultrasound showing dilated common bile duct and a 9 mm Calculus in the gallbladder neck region. Patient then underwent a laparoscopic cholecystectomy with Dr. Winters. Patient tolerated surgery well. No complications. He is tolerating diet. He has been up and ambulating. Pain is controlled. Oncology also following in regards to patient's history of colon cancer and liver lesions noted on abdominal ultrasound. Per oncology the liver lesions appeared to be unchanged. They will be discussing this with radiology if further imaging is needed. Oncology also stated that this can all be done with further workup outpatient. The recommending a follow-up in 4-6 weeks. Physician Skelp Processor note has been reviewed by physician. Signing provider agrees with the documented findings, assessment, and plan of care. Patient Condition at Discharge: Stable Plan - Discharge Summary Discharge Rx Participant: No New Discharge Prescriptions: New Docusate [Colace] 100 mg PO BID #30 capsule Ibuprofen [Motrin] 600 mg PO Q8HR PRN #30 tab PRN Reason: Pain Continue metFORMIN HCL [metFORMIN HCL ER] 500 mg PO BID lisinopriL [Zestril] 5 mg PO DAILY Discharge Medication List lisinopriL [Zestril] 5 mg PO DAILY 10/21/19 [History] metFORMIN HCL [metFORMIN HCL ER] 500 mg PO BID 10/21/19 [History] Docusate [Colace] 100 mg PO BID #30 capsule 10/23/19 [Rx] Ibuprofen [Motrin] 600 mg PO Q8HR PRN #30 tab 10/23/19 [Rx] Follow up Appointment(s)/Referral(s): Emily Gallo DO [Primary Care Provider] - 1-2 days Adria Winters MD [STAFF PHYSICIAN] - 1 Week Patient Instructions/Handouts: *Surgery [facility] - Laparoscopic Cholecystectomy Discharge Instructions, Low Fat Diet (ED) Activity/Diet/Wound Care/Special Instructions: No lifting over 10 pounds 1 week You may shower. No soaking or tub baths Very light activity until you are reevaluated at your follow up appointment with your surgeon Diet regular Discharge Disposition: HOME SELF-CARE
== END 2019-10-23 11:20 | disposition home or self-care (01) ==
LOC: EC 12:56 → 1SOBS 15:32
PROVIDERS: ADMIT Surgery; ATTEND Surgery
DX: K80.12 Calculus of gallbladder with acute and chronic cholecystitis without obstruction (principal); K82.8 Other specified diseases of gallbladder; K82.1 Hydrops of gallbladder; E87.2 Acidosis; K76.0 Fatty (change of) liver, not elsewhere classified; K76.9 Liver disease, unspecified; F17.210 Nicotine dependence, cigarettes, uncomplicated; I10 Essential (primary) hypertension; E78.5 Hyperlipidemia, unspecified; E11.9 Type 2 diabetes mellitus without complications; Z79.82 Long term (current) use of aspirin; Z79.899 Other long term (current) drug therapy; Z79.84 Long term (current) use of oral hypoglycemic drugs; Z88.5 Allergy status to narcotic agent; Z85.038 Personal history of other malignant neoplasm of large intestine; Z90.49 Acquired absence of other specified parts of digestive tract; Z92.21 Personal history of antineoplastic chemotherapy; Z87.19 Personal history of other diseases of the digestive system; Z82.49 Family history of ischemic heart disease and other diseases of the circulatory system; Z82.3 Family history of stroke; Z83.3 Family history of diabetes mellitus; K08.409 Partial loss of teeth, unspecified cause, unspecified class; Z98.811 Dental restoration status
CPT/HCPCS: 47562; 96361 ×3; 96366 ×2; 96372; 96375 ×2; 96376 ×3; 96365; 99285; 36415; 93005; 88304; 80053 ×3; 82378; 82150; 83605; 83690; 84484; 85025 ×3; 81001; 87040; 76705; G0378 ×3; J2543 ×3; J2250; J1644; J1100; J2710; J2405; J2001; J3010; J1170 ×3; J0330; J2704

== ENCOUNTER 2023-02-15 07:51 | Day surgery (SDC) | payer OTHER ==
[2023-02-15 08:34] LABS: Glucose,Whole Blood 132 mg/dL (70-110)
[2023-02-15] MEDS ORDERED: PROPOFOL 10 MG/ML 20 ML VIAL IV ONE (08:51)
[2023-02-15 08:55] VITALS: RESP 16; TEMP 97.3
--- NOTE | 2023-02-15 09:10 | P.PCN ---
Date of Procedure: 02/15/23 Procedure(s) Performed: BRIEF HISTORY: Patient is a 52-year-old pleasant white male scheduled for an elective colonoscopy as a part of surveillance of prior history of colon cancer diagnosed in 2011. His last colonoscopy was 5 years ago. PROCEDURE PERFORMED: Colonoscopy. PREOPERATIVE DIAGNOSIS: History of colon cancer times in 2011. IV sedation per Anesthesia. PROCEDURE: After informed consent was obtained, the patient, was brought into the endoscopy unit. IV sedation was administered by Anesthesia under continuous monitoring. Digital rectal examination was normal. Initially the Olympus CF-160 flexible video colonoscope was then inserted in the rectum, gradually advanced into the right colon with the liquid anastomosis was visualized and appeared normal. Mucosa of the transverse colon, descending colon, sigmoid colon, and rectum appeared normal. Scattered diffuse diverticulosis. Retroflexion was performed in the rectum and no lesions were seen. The patient tolerated the procedure well. IMPRESSION: Normal-appearing colon from rectum to right colon no evidence of colitis or colo rectal neoplasia Scattered diffuse diverticulosis RECOMMENDATIONS: Findings of this examination were discussed with the patient as well as his family. He was advised to have a repeat colonoscopy in 5 years because of personal history of colon cancer.
[2023-02-15 09:22] VITALS: PULSE 72
[2023-02-15 09:47] VITALS: BP 113/77
== END 2023-02-15 10:00 | disposition home or self-care (01) ==
LOC: ORWHC2ENDO 07:51
PROVIDERS: ATTEND Internal Medicine Gastroenterology
DX: Z12.11 Encounter for screening for malignant neoplasm of colon (principal); K57.30 Diverticulosis of large intestine without perforation or abscess without bleeding; E11.9 Type 2 diabetes mellitus without complications; F17.200 Nicotine dependence, unspecified, uncomplicated; Z79.84 Long term (current) use of oral hypoglycemic drugs; Z88.5 Allergy status to narcotic agent; Z88.6 Allergy status to analgesic agent; Z79.899 Other long term (current) drug therapy; Z86.010 Personal history of colon polyps
CPT/HCPCS: 45378; J2704

== ENCOUNTER 2023-07-31 18:02 | Emergency (ER) | payer OTHER ==
[2023-07-31 18:27] VITALS: TEMP 98.3
[2023-07-31] MEDS: ceFAZolin 1,000 MG VIAL (IM USE) IM STA (19:45)
--- NOTE | 2023-07-31 19:45 | XR ---
EXAMINATION TYPE: XR foot complete RT DATE OF EXAM: 07/31/2023 7:19 PM CLINICAL INDICATION:Male, 53 years old with history of jose fell on foot; [facility] COMPARISON: None TECHNIQUE: XR foot complete RT examined in the AP, oblique, and lateral projections. FINDINGS/IMPRESSION: 1. Comminuted fracture intra-articular of the first digit proximal and distal phalanxes. 2. Fracture of the third digit distal phalanx with fracture site involving the distal interphalangea l joint. 3. Fracture of the second digit distal phalanx. 4. Soft tissue swelling from injuries described above.
[2023-07-31] MEDS: LIDOCAINE 1% INJ 10MG/ML (20 ML MDV) SQ ONE (20:10)
[2023-07-31] MEDS: DIPH,PERTUS(ACELL)TETVAC-LF 0.5 ML VIAL IM ONE (20:10)
--- NOTE | 2023-07-31 21:17 | ED ---
General Adult HPI - General Chief complaint: Extremity Injury, Lower Stated complaint: R Foot Injury Time Seen by Provider: 07/31/23 18:18 Source: patient, RN notes reviewed Mode of arrival: ambulatory Limitations: no limitations - History of Present Illness Initial comments: 53-year-old male presents to the emergency department for evaluation of right foot injury. Patient states that he was working on a semitruck when the axle fell onto his right foot. He reports injury to the first 3 toes of the right foot. He states that he has bleeding to his toes. He reports pain to his midfoot when ambulating. He is unsure when his last tetanus vaccine was. He reports a history of neuropathy and states that he has minimal pain to his toes which he attributes to his decreased sensation in his toes. He states that his sensation is similar in both feet. Denies any other injury. - Related Data Home Medications Medication Instructions Recorded Confirmed lisinopriL [Zestril] 5 mg PO DAILY 10/21/19 02/13/23 metFORMIN HCL [metFORMIN HCL ER] 500 mg PO TID 10/21/19 02/13/23 Previous Rx's Medication Instructions Recorded Cephalexin [Keflex] 500 mg PO Q6HR #40 cap 07/31/23 Allergies Allergy/AdvReac Type Severity Reaction Status Date / Time acetaminophen [From Vicodin] Allergy Rash/Hives Verified 02/15/23 08:15 hydrocodone [From Vicodin] Allergy Rash/Hives Verified 02/15/23 08:15 Review of Systems ROS Statement: Those systems with pertinent positive or pertinent negative responses have been documented in the HPI. ROS Other: All systems not noted in ROS Statement are negative. Past Medical History Past Medical History: Cancer, Diabetes Mellitus Additional Past Medical History / Comment(s): colon cancer 2012, pt. states he "does not have high BP, I take lisinopril for the diabetes." neuropathy History of Any Multi-Drug Resistant Organisms: None Reported Additional Past Surgical History / Comment(s): bowel resection 2011, metastsized to liver 2 yrs later and was removed surgically, bilateral cataract removal Past Anesthesia/Blood Transfusion Reactions: No Reported Reaction Past Psychological History: No Psychological Hx Reported Smoking Status: Current some day smoker - Past Family History Mother Family Medical History: Coronary Artery Disease (CAD), CVA/TIA, Diabetes Mellitus Father Additional Family Medical History / Comment(s): of brain tumor 1984 General Exam Limitations: no limitations General appearance: alert, in no apparent distress Head exam: Present: atraumatic, normocephalic, normal inspection Eye exam: Present: normal appearance, PERRL, EOMI. Absent: scleral icterus, conjunctival injection, periorbital swelling Respiratory exam: Present: normal lung sounds bilaterally. Absent: respiratory distress, wheezes, rales, rhonchi, stridor Cardiovascular Exam: Present: regular rate, normal rhythm, normal heart sounds. Absent: systolic murmur, diastolic murmur, rubs, gallop, clicks Extremities exam: Present: normal inspection, full ROM, normal capillary refill, other (Ecchymosis and laceration to the mid and distal dorsal foot, equal sensation in feet bilaterally). Absent: tenderness, pedal edema, joint swelling, calf tenderness Skin exam: Present: warm, dry. Absent: intact, normal color Course Vital Signs 07/31/23 07/31/23 18:03 21:39 Temperature 98.3 F Pulse Rate 74 65 Respiratory 20 16 Rate Blood Pressure 155/90 130/84 O2 Sat by Pulse 98 100 Oximetry Procedures - Laceration Laceration #1 Consent Obtained: verbal consent Indication: laceration Site: foot Size (cm): 1 Description: linear Depth: simple, single layer Anesthetic Used: lidocaine 1% Anesthesia Technique: local infiltration Pre-repair: wound explored Type of Sutures: other Size of Sutures: 5-0 Number of Sutures: 3 Technique: simple, interrupted Patient Tolerated Procedure: well, no complications Laceration #2 Consent Obtained: verbal consent Indication: laceration Site: foot Description: linear Depth: simple, single layer Anesthetic Used: lidocaine 1% Anesthesia Technique: local infiltration Pre-repair: wound explored Type of Sutures: other Size of Sutures: 5-0 Number of Sutures: 5 Technique: simple, interrupted Complications: bleeding Patient Tolerated Procedure: well, no complications Medical Decision Making - Medical Decision Making Was pt. sent in by a medical professional or institution (ARNIE Gilbert, HAND HIDE STRETCHER, urgent care, hospital, or half-way...) When possible be specific @ -No Did you speak to anyone other than the patient for history (EMS, parent, family, police, friend...)? What history was obtained from this source @ -No Did you review nursing and triage notes (agree or disagree)? Why? @ -I reviewed and agree with nursing and triage notes Were old charts reviewed (outside hosp., previous admission, EMS record, old EKG, old radiological studies, urgent care reports/EKG's, half-way records)? Report findings @ -No old charts were reviewed Differential Diagnosis (chest pain, altered mental status, abdominal pain women, abdominal pain men, vaginal bleeding, weakness, fever, dyspnea, syncope, headache, dizziness, GI bleed, back pain, seizure, CVA, palpatations, mental health, musculoskeletal)? @ -Differential Musculoskeletal Muscular strain, contusion, ligament sprain, fracture, arthritis, septic arthritis, bursitis, cellulitis, muscle spasm, nerve compression, DVT, arterial occlusion, herpes zoster, electrolyte abnormality, tumor.... This is not meant to be in all inclusive list EKG interpreted by me (3pts min.). @ -None X-rays interpreted by me (1pt min.). @ -X-ray of the right foot shows comminuted fracture of the first digit proximal and distal phalanxes, fracture of the second distal phalanx, fracture of the third distal phalanx CT interpreted by me (1pt min.). @ -None done U/S interpreted by me (1pt. min.). @ -None done What testing was considered but not performed or refused? (CT, X-rays, U/S, labs)? Why? @ -None What meds were considered but not given or refused? Why? @ -None Did you discuss the management of the patient with other professionals (professionals i.e. , PA, HAND HIDE STRETCHER, lab, RT, psych nurse, health and social care teacher, bevel mill operator, teacher, sports development officer, correctional case manager)? Give summary @ -No Was smoking cessation discussed for >3mins.? @ -No Was critical care preformed (if so, how long)? @ -No Were there social determinants of health that impacted care today? How? (Homelessness, low income, unemployed, alcoholism, drug addiction, transportation, low edu. Level, literacy, decrease access to med. care, prison, rehab)? @ -No Was there de-escalation of care discussed even if they declined (Discuss DNR or withdrawal of care, Hospice)? DNR status @ -No What co-morbidities impacted this encounter? (DM, HTN, Smoking, COPD, CAD, Cancer, CVA, ARF, Chemo, Hep., AIDS, mental health diagnosis, sleep apnea, morbid obesity)? @ -None Was patient admitted / discharged? Hospital course, mention meds given and route, prescriptions, significant lab abnormalities, going to OR and other pert inent info. @ -Discharged. Patient presents to the emergency department for evaluation of right foot injury. X-rays obtained which show fractures of the first second and third toes of the right foot. Patient was given dose of kefzol IM and provided updated tetanus shot. Wounds were irrigated and laceration on 2nd and 3rd toes were repaired. Patient was placed in a splint covering the toes. He was provided prescription for PO antibiotics for prophylaxis. Advised to follow up with orthopedics specialist. He is understanding and agreeable with plan. Patient stable at time of discharge. Case discussed with Dr. Brewer Undiagnosed new problem with uncertain prognosis? @ -No Drug Therapy requiring intensive monitoring for toxicity (Heparin, Nitro, Insulin, Cardizem)? @ -No Were any procedures done? @ -No Diagnosis/symptom? @ -Toe fracture, laceration Acute, or Chronic, or Acute on Chronic? @ -acute Uncomplicated (without systemic symptoms) or Complicated (systemic symptoms)? @ -uncomplicated Side effects of treatment? @ -No Exacerbation, Progression, or Severe Exacerbation? @ -No Poses a threat to life or bodily function? How? (Chest pain, [place], [place], pneumonia, PE, COPD, DKA, ARF, appy, cholecystitis, CVA, Diverticulitis, Homicidal, Suicidal, threat to staff... and all critical care pts) @ -No Disposition Clinical Impression: Crush injury of foot, Toe fracture, right Disposition: HOME SELF-CARE Condition: Stable Instructions (If sedation given, give patient instructions): Toe Fracture (ED), Splint Care (ED) Additional Instructions: Please sweet pickle maker your antibiotics and take to completion. Follow up with orthopedics. Return to the emergency department for new or worsening symptoms. Prescriptions: Cephalexin [Keflex] 500 mg PO Q6HR #40 cap Is patient prescribed a controlled substance at d/c from ED?: No Referrals: Emily Gallo DO [Primary Care Provider] - 1-2 days Davide Ramey DO [Doctor of Osteopathic Medicine] - 1-2 days
[2023-07-31] MEDS: IBUPROFEN 600 MG STARTER PACK 4 TAB BTL PO STA (21:27)
[2023-07-31] MEDS: ACET/COD 300 MG/30 MG STARTER PACK 6 TAB BTL PO STA (21:28)
[2023-07-31 22:28] VITALS: BP 130/84; PULSE 65; RESP 16
== END 2023-07-31 21:39 | disposition home or self-care (01) ==
LOC: EC 18:02
DX: S92.911A Unspecified fracture of right toe(s), initial encounter for closed fracture (principal); S97.80XA Crushing injury of unspecified foot, initial encounter; F17.200 Nicotine dependence, unspecified, uncomplicated; Z88.5 Allergy status to narcotic agent; Z88.8 Allergy status to other drugs, medicaments and biological substances; Z23 Encounter for immunization; W23.0XXA Caught, crushed, jammed, or pinched between moving objects, initial encounter
CPT/HCPCS: 73630; 90715; 99283; 96372; 90471; 12001; J0690; J2001

== ENCOUNTER → 2024-02-08 | Outpatient (CLI) | payer OTHER ==
[2024-02-08 19:13] LABS: Basophils # (A) 0.07 X 10*3/uL (0.00-0.10); Basophils % (A) 0.9 %; Eosinophils # (A) 0.22 X 10*3/uL (0.04-0.35); Eosinophils % (A) 2.8 %; HCT 44.2 % (39.6-50.0); HGB 14.3 g/dL (13.0-17.0); Lymphocytes # (A) 2.65 X 10*3/uL (0.90-5.00); Lymphocytes % (A) 33.2 %; MCH 29.1 pg (27.0-32.0); MCHC 32.4 g/dL (32.0-37.0); Mean Platelet Volume 10.3 FL (9.5-12.2); Monocytes # (A) 0.53 X 10*3/uL (0.20-1.00); Monocytes % (A) 6.6 %; NRBC Per 100 WBC 0 X 10*3/uL (0.00-0.01); Neutrophils # (A) 4.48 X 10*3/uL (1.80-7.70); Neutrophils % (A) 56.1 %; Platelet Count 246 X 10*3/uL (140-440); RBC 4.91 X 10*6/uL (4.40-5.60); RDW 14.1 % (11.5-14.5); WBC 7.98 X 10*3/uL (4.50-10.00)
== END | disposition home or self-care (01) ==
LOC: LABPAT 15:39
PROVIDERS: ATTEND Surgery
DX: Z01.818 Encounter for other preprocedural examination (principal)
CPT/HCPCS: 85025; 86850; 86900; 86901; 93005

== ENCOUNTER 2024-02-19 08:08 | Day surgery (SDC) | payer OTHER ==
[2024-02-19] MEDS ORDERED: MIDAZOLAM 2 MG/2 ML VIAL IV PRN (08:39)
[2024-02-19 08:56] VITALS: TEMP 98
[2024-02-19 09:06] LABS: Glucose,Whole Blood 140 mg/dL (70-110)
[2024-02-19] MEDS: IV FLUID CONTINUATION 1,000 ML IV ONE ×2 (09:07→12:01)
[2024-02-19] MEDS: DEXAMETHASONE SOD PHOSPHATE 4 MG/ML 1 ML VIAL IV ONE (09:11)
[2024-02-19] MEDS: LACTATED RINGERS 1,000 ML IV SCH (09:11)
[2024-02-19] MEDS: ACETAMINOPHEN TAB 500 MG TAB PO PRN (09:11)
[2024-02-19] MEDS: ONDANSETRON 4 MG/2 ML VIAL IVP ONE (09:11)
[2024-02-19] MEDS: SCOPOLAMINE 1 MG/72 HR PATCH TRANSDERM ONE (09:12)
[2024-02-19] MEDS: HEPARIN SODIUM,PORCINE 5,000 UNIT/ML 1 ML VIAL SQ PRN (09:42)
--- NOTE | 2024-02-19 10:18 | P.GSHP ---
History of Present Illness H&P Date: 02/19/24 Chief Complaint: Right inguinal hernia 53-year-old male here for elective repair right inguinal hernia. Enlarging gradually over the last several months. Mild soreness at times. No history of previous hernias. Patient has been working on quitting smoking. Past Medical History Past Medical History: Cancer, Diabetes Mellitus, Hyperlipidemia Additional Past Medical History / Comment(s): colon cancer 2011 chemo and [id number], pt. states he "does not have high BP, I take lisinopril for the diabetes." neuropathy to feet. colon cancer went to liver 2013 part of his liver taken out. did chemo afterwards. History of Any Multi-Drug Resistant Organisms: None Reported Past Surgical History: Cholecystectomy Additional Past Surgical History / Comment(s): bowel resection 2011, metastsized to liver 2 yrs later and was removed surgically, bilateral cataract removal. inner ear surgery, colonoscopy Past Anesthesia/Blood Transfusion Reactions: No Reported Reaction Additional Past Anesthesia/Blood Transfusion Reaction / Comment(s): no blood transfusions Smoking Status: Current some day smoker - Past Family History Mother Family Medical History: Coronary Artery Disease (CAD), CVA/TIA, Diabetes Marybeth litus Father Additional Family Medical History / Comment(s): of brain tumor 1984 Medications and Allergies Home Medications Medication Instructions Recorded Confirmed Type lisinopriL [Zestril] 5 mg PO DAILY 10/21/19 02/15/24 History metFORMIN HCL [metFORMIN HCL ER] 500 mg PO TID 10/21/19 02/15/24 History Atorvastatin [Lipitor] 10 mg PO DAILY 02/15/24 02/15/24 History Allergies Allergy/AdvReac Type Severity Reaction Status Date / Time acetaminophen [From Vicodin] Allergy Rash/Hives Verified 02/19/24 08:47 hydrocodone [From Vicodin] Allergy Rash/Hives Verified 02/19/24 08:47 Surgical - Exam Vital Signs Temp Pulse Resp BP Pulse Ox 98 F 78 16 137/75 99 02/19/24 08:55 02/19/24 08:55 02/19/24 08:55 02/19/24 08:55 02/19/24 08:55 Physical exam: General: Well-developed, well-nourished HEENT: Normocephalic, sclerae nonicteric Abdomen: Nontender, nondistended, moderate sized right inguinal hernia Extremities: No edema Neuro: Alert and oriented Results - Labs Abnormal Lab Results - Last 24 Hours (Table) 02/19/24 Range/Units 09:05 POC Glucose (mg/dL) 140 H (70-110) mg/dL Assessment and Plan (1) Right inguinal hernia Narrative/Plan: 53-year-old male with right inguinal hernia. Will proceed with laparoscopic da Alexey assisted repair right inguinal hernia with mesh, possible open, possible bilateral. Risks of bleeding, infection, recurrence, bladder and bowel injury, numbness, nerve injury, conversion to an open procedure were discussed with the patient. The patient understands and wishes to proceed. Current Visit: Yes Status: Acute Code(s): K40.90 - UNIL INGUINAL HERNIA, W/O OBST OR GANGR, NOT SPCF RECUR SNOMED Code(s): 768682364
[2024-02-19] MEDS: TAMSULOSIN 0.4 MG CAP.ER.24H PO STA (10:19)
[2024-02-19] MEDS ORDERED: NEOSTIGMINE 1 MG/ML 10 ML VIAL ONE (10:44)
[2024-02-19] MEDS ORDERED: ROCURONIUM 10 MG/ML (5 ML VIAL) IV ONE (10:44)
[2024-02-19] MEDS ORDERED: MIDAZOLAM 2 MG/2 ML VIAL ONE (10:44)
[2024-02-19] MEDS ORDERED: PROPOFOL 10 MG/ML 20 ML VIAL IV ONE (10:44)
[2024-02-19] MEDS ORDERED: KETOROLAC 30 MG/ML 1 ML VIAL ONE (10:44)
[2024-02-19] MEDS ORDERED: SUCCINYLCHOLINE CHLORIDE 200 MG/10 ML VIAL IV ONE (10:44)
[2024-02-19] MEDS ORDERED: GLYCOPYRROLATE 0.2 MG/ML 2 ML VIAL ONE (10:44)
[2024-02-19] MEDS ORDERED: PHENYLEPHRINE-0.9% NACL SYG 1,000 MCG/10 ML SYRINGE ONE (10:44)
[2024-02-19] MEDS ORDERED: fentaNYL (PF) 50 MCG/ML 2 ML AMP ONE (10:44)
[2024-02-19] MEDS ORDERED: LIDOCAINE 1% INJ 10MG/ML (20 ML MDV) ONE (10:44)
[2024-02-19] MEDS: BUPIVACAINE (PF) 0.25% 30 ML VIAL SQ ONE (11:09)
--- NOTE | 2024-02-19 12:53 | P.OP ---
Date of Procedure: 02/19/24 Procedure(s) Performed: PREOPERATIVE DIAGNOSIS: Right inguinal hernia POSTOPERATIVE DIAGNOSIS: Right indirect inguinal hernia PROCEDURE: Laparoscopic repair right inguinal hernia da Alexey assisted with mesh SURGEON: Dr. Cabrera ANESTHESIA: General EBL: 5 cc OPERATIVE PROCEDURE DETAILS: Patient was placed in the operating table in the supine position. The patient was placed under general anesthesia. The abdomen was prepped and draped in usual sterile fashion. A small curvilinear supraumbilical incision was made. The fascia was retracted anteriorly with Rod forceps. The Veress needle was inserted. The saline drop test was normal. Insufflation took place to 15 mmHg. An 8 mm trocar was placed into the peritoneal cavity. The patient was noted to have adhesions in the upper abdomen. The trocar was in a area of omental adhesions. There was no bowel visualized. We did have adequate pneumoperitoneum so I decided they place a 8 mm trocar in the left upper quadrant. The abdominal cavity was inspected. The patient had a previous laparoscopic cholecystectomy. Patient also had a vertical incision around the umbilicus that appeared more consistent with an umbilical hernia repair in the past. Our initial trocar was superior to the previous scar site at the umbilicus. The patient's adhesions however encompassed the entire upper abdomen. There was a portion of omentum that was adherent across the upper abdomen. The patient's right upper quadrant 8 mm trocar was placed without difficulty. The camera was then inserted through there. I inspected both trocar insertion sites carefully. The omentum was adherent to the abdominal wall. The transverse colon was about 4 cm superior to our midline trocar entrance site. There was no evidence of injury on evaluation there. The left upper quadrant trocar was adjacent to an adhesion of the omentum. There was no bowel in that vicinity. The lower abdomen was inspected. The patient had an obvious large indirect hernia on the right. There were some adhesions between the sigmoid colon and the abdominal wall in the left lower quadrant without obvious hernia. The robotic arms were then brought in and docked into place. The fenestrated bipolar was used in the left arm and the laparoscopic carlos was utilized in the right arm. A 30 8 mm scope was used in the up position. The peritoneum was incised in a horizontal fashion cephalad to the internal inguinal ring. Following that careful dissection of the preperitoneal space took place. This took place using both electrocautery, sharp dissection but primarily blunt dissection. Visualization of the pubic tubercle and Tavo's ligament took place medially. Full dissection took place laterally as well. The hernia sac was fully dissected. The patient had a small vessel coming off of the inferior epigastric that was crossing our dissection plane. This was ligated using a carlos with a clip on either side. There was no visible cord lipoma penetrating through the internal inguinal ring. Once we had adequate space the [id number] Progrip mesh was advanced into the preperitoneal space and flattened out appropriately to cover all potential hernia sites. The mesh was sutured medially to the folding edge of Tavo's ligament. This was performed using a absorbable 3-0 V-Loc suture. The peritoneal defect was then closed using a absorbable 2-0 VLok suture. The hernia sac was incorporated into the peritoneal closure to help prevent future recurrence using a second 6 inch 2-0 absorbable V-Loc. The pneumoperitoneum was then evacuated. The skin of all 3 sites was closed using a 4-0 Monocryl stitch. Skin glue was then applied. TYPE OF MESH USED: 15 x 10 cm ProGrip LOCATION OF MESH: Preperitoneal FIXATION: Absorbable 300 V-Loc PREOPERATIVE DISCUSSION ON SMOKING CESSASTION: Yes PREOPERATIVE DISCUSSION ON MORBID OBESITY: Yes PREOPERATIVE DISCUSSION ON APPROPRIATE USE OF NARCOTIC USE: Yes PREOPERATIVE EDUCATION: Multi Modal, Smoking Cessation and Weight Loss with BMI over 35. DISPOSITION: Stable to recovery room
[2024-02-19] MEDS: fentaNYL (PF) 50 MCG/ML 2 ML AMP IV PRN (13:15)
[2024-02-19 14:42] VITALS: RESP 18
[2024-02-19 15:11] VITALS: BP 136/78; PULSE 73
[2024-02-19] MEDS ORDERED: ACETAMINOPHEN TAB 325 MG TAB PO SCH (18:00)
[2024-02-19] MEDS ORDERED: IBUPROFEN 600 MG TAB PO SCH (20:00)
== END 2024-02-19 15:50 | disposition home or self-care (01) ==
LOC: OR 08:08
PROVIDERS: ATTEND Surgery
DX: K40.90 Unilateral inguinal hernia, without obstruction or gangrene, not specified as recurrent (principal); E11.42 Type 2 diabetes mellitus with diabetic polyneuropathy; E78.5 Hyperlipidemia, unspecified; F17.210 Nicotine dependence, cigarettes, uncomplicated; Z85.038 Personal history of other malignant neoplasm of large intestine; Z88.5 Allergy status to narcotic agent; Z90.49 Acquired absence of other specified parts of digestive tract; Z79.84 Long term (current) use of oral hypoglycemic drugs; Z79.899 Other long term (current) drug therapy; Z98.890 Other specified postprocedural states
CPT/HCPCS: 49650; S2900